=== PATIENT | male | born 1995 | race Caucasian/White ===

== ENCOUNTER 2018-04-14 14:14 | Emergency (ER) | payer OTHER | END 2018-04-14 14:54 | disposition left against medical advice (07) | LOC: ED 14:14 | DX: Z53.21 Procedure and treatment not carried out due to patient leaving prior to being seen by health care provider (principal) ==

== ENCOUNTER 2023-10-14 06:55 | Day surgery (SDC) | payer OTHER ==
[2023-10-14] MEDS: LACTATED RINGERS 1,000 ML IV ONE ×2 (07:02→08:55)
[2023-10-14] MEDS ORDERED: LIDOCAINE-PF 2% 10 ML AMP SUBQ ONE (07:55)
[2023-10-14] MEDS ORDERED: MIDAZOLAM 2 MG/2 ML VIAL ONE (07:55)
[2023-10-14] MEDS ORDERED: PROPOFOL 200 MG/20 ML VIAL IVP ONE (07:55)
[2023-10-14] MEDS ORDERED: fentaNYL 100 MCG/2 ML VIAL ONE (07:55)
[2023-10-14] MEDS ORDERED: lidocaine 1% 20 ML MDV ONE (07:59)
[2023-10-14] MEDS ORDERED: NALOXONE 0.4 MG/ML VIAL IVP PRN (08:05)
[2023-10-14] MEDS ORDERED: fentaNYL 100 MCG/2 ML VIAL IVP PRN (08:05)
[2023-10-14] MEDS ORDERED: MORPHINE 2 MG/ML CARPUJECT IVP PRN (08:05)
[2023-10-14] MEDS ORDERED: HYDROmorphone 0.5 MG/0.5 ML SYRINGE IVP PRN (08:05)
[2023-10-14] MEDS ORDERED: ePHEDrine 50 MG/ML VIAL IVP PRN (08:05)
[2023-10-14] MEDS ORDERED: ONDANSETRON 4 MG/2 ML VIAL IVP PRN (08:05)
[2023-10-14] MEDS ORDERED: METOCLOPRAMIDE 10 MG/2 ML VIAL IVP PRN (08:05)
[2023-10-14] MEDS ORDERED: ATROPINE ABBOJECT 1 MG/10 ML SYRINGE IVP PRN (08:05)
--- NOTE | 2023-10-14 08:05 | ANESTHESIA ---
Pre-Anesthesia VS, & Labs - Diagnosis desires sterilization - Procedure vasectomy Vital Signs: Temp Pulse Resp BP Pulse Ox O2 Flow Rate 36.4 C L 62 14 98 10/14/23 07:04 10/14/23 07:04 10/14/23 07:04 10/14/23 07:04 Height: 5 ft 6 in Weight (kg): 79.8 kg Body Mass Index: 28.3 BMI Classification: Overweight - NPO >8 hours Home Medications and Allergies Home Medications: Ambulatory Orders No Known Home Medications 10/07/23 No Known Home Medications 10/07/23 Allergies/Adverse Reactions: Allergies Allergy/AdvReac Type Severity Reaction Status Date / Time No Known Drug Allergies Allergy Verified 10/07/23 12:42 Anes History & Medical History - Anesthetic History Anesthesia Complications: reports: No previous complications Family history of Anesthesia Complications: Denies - Medical History Cardiovascular: reports: None Pulmonary: reports: None Gastrointestinal: reports: None Urinary: reports: None Musculoskeletal: reports: None Endocrine/Autoimmune: reports: None Skin: reports: None Smoking Status: Never smoker Psychosocial: reports: No issues indicated - Surgical History Eyes Ears Nose Throat (EENT): reports: Myringotomy (tubes), Tonsil/Adenoidectomy Exam General: Alert, Oriented x3 Dental: WNL Mouth Openin Fingerbreadth Neck Mobility: Normal Mallampati classification: II Thyromental Distance: 4-6 cm Respiratory: Lungs clear Cardiovascular: Regular rate Plan Anesthesia Type: General Consent for Procedure(s) Verified and Reviewed: Yes Code Status: Attempt Resuscitation ASA classification: 1-Healthy patient Is this case an emergency?: No
[2023-10-14] MEDS: LIDOCAINE 1% 50 ML MDV SUBQ ONE (08:29)
[2023-10-14] MEDS ORDERED: ONDANSETRON 4 MG/2 ML VIAL ONE (08:43)
[2023-10-14] MEDS ORDERED: DEXAMETHASONE 4 MG/ML VIAL ONE (08:43)
[2023-10-14] MEDS ORDERED: GLYCOPYRROLATE 1 MG/5 ML VIAL ONE (08:51)
[2023-10-14] MEDS ORDERED: LACTATED RINGERS 1,000 ML IV SCH (09:00)
--- NOTE | 2023-10-14 09:02 | Discharge Plan ---
Discharge Plan Problem Reviewed?: Yes Disposition: 01 Home, Self Care Condition: Good Diet: Regular Activity Restrictions: Additional Comments (as instructed) Shower Restrictions: No Driving Restrictions: No Instruction Topics: Vasectomy No Scalpel Additional Instructions or Follow Up instructions: You must use secondary contraceptive (eg condoms) for now After three months, contact Dr Parker's office to arrange for you to drop off a semen sample at a lab to confirm no more sperm No Smoking: If you smoke, Please STOP! Call for help.
--- NOTE | 2023-10-14 09:03 | OPERATIVE REPORT ---
Operative Report - General Procedure Date: 10/14/23 Planned Procedure: Bilateral vasectomy Pre-Op Diagnosis: elective sterilization Procedure Performed: No scalpel bilateral vasectomy Post Op Diagnosis: elective sterilization - Procedure Note Primary Surgeon: Keith Anesthesia Provider: DONNIE Dupree Anesthesia Technique: General LMA Pathology: none Estimated Blood Loss (mL): 0 Findings: Normal Vasectomy Complications: none - Other Other Information/Narrative: After informed consent obtained patient brought to the OR and laid in supine position. The patient was anesthetized per anesthesia protocols and then prepped and draped in usual sterile fashion. A formal timeout was performed reconfirming the patient, procedure and laterality He is vas deferens identified through his right hemiscrotum. 1% lidocaine was used as local. Using a sharp mosquito is scrotal tissue was dissected away and his vas sheath was grasped using a ring clamp. This was sharply incised and the vas was identified and pulled out. It was clamped on both sides and the intervening 1 cm segment was cauterized away. The ends were cauterized as well. The ends were suture-ligated with chromic suture and then the distal end was buried using a fascial interposition stitch using 3-0 chromic suture. There was no bleeding. His skin was closed using a 3-0 chromic horizontal mattress s titch. An identical procedure performed on the left side. Band-Aids were placed. This concluded the procedure and the patient tolerated the procedure well. All counts were correct. He will have a semen analysis performed in 3 months to confirm azoospermia.
[2023-10-14] MEDS ORDERED: HYDROcod/ACETAM 5/325 MG TABLET ONE (09:38)
[2023-10-14] MEDS: HYDROcod/ACETAM 5/325 MG TABLET PO PRN (09:46)
[2023-10-14 09:59] VITALS: BP 119/86; O2SAT 100
--- NOTE | 2023-10-14 12:27 | ANESTHESIA POST OP EVALUATION ---
Anesthesia Post Eval - Post Anesthesia Eval Vitals: Last Vital Signs Temp 36.0 C L 10/14/23 09:45 Pulse 75 10/14/23 09:45 Resp 16 10/14/23 09:45 BP 119/86 H 10/14/23 09:45 Pulse Ox 100 10/14/23 09:45 O2 Flow Rate CV Function Including HR & BP: Stable Pain Control: Satisfactory Nausea & Vomiting: Negative Mental Status: Baseline Respiratory Status: Airway Patent Hydration Status: Satisfactory Anesthesia Complications: None
== END 2023-10-14 06:56 | disposition home or self-care (01) ==
LOC: SDS 06:55
PROVIDERS: ATTEND Urology
DX: Z30.2 Encounter for sterilization (principal)
CPT/HCPCS: 55250; A9270; J7120